=== PATIENT | male | born 1980 | race Caucasian/White ===

== ENCOUNTER 2020-11-06 09:30 | Outpatient (RCR) | payer OTHER, SELFPAY ==
[2020-11-03 14:19] VITALS: BMI 23.7
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
--- NOTE | 2020-11-06 12:17 | PC.NURSE ---
Per staff patient's partner left a voice mail stating that patient was not going to be in group as he is having SI and is awaiting a bed in the [place] [facility] of the [facility] and will be transferred there. Staff received another voicemail that Jose has been admitted to [facility] inpatient unit.
--- NOTE | 2020-11-06 14:41 | PC.NURSE ---
Pt called and left a message early this morning. He said he is in the hospital after his partner called because he (pt) was having SI. He said he is safe and they will be transferring him to the [place] part of the [facility] for an inpatient stay. He expressed interest in resuming PHP after inpatient. I called back and left him a message.
== END 2020-11-06 14:33 | disposition home or self-care (01) ==
LOC: HO.PHPA 09:30
PROVIDERS: Visit Provider Psychiatry & Neurology Psychiatry
DX: F33.2 Major depressive disorder, recurrent severe without psychotic features (principal); F43.10 Post-traumatic stress disorder, unspecified
CPT/HCPCS: 90791; 90853

== ENCOUNTER 2020-11-17 08:28 | Outpatient (RCR) | payer OTHER, SELFPAY | END 2021-01-08 14:12 | disposition home or self-care (01) | LOC: HO.PHPA 08:28 | PROVIDERS: PCP Family Medicine; Visit Provider Psychiatry & Neurology Psychiatry | DX: F32.9 Major depressive disorder, single episode, unspecified (principal) ==

== ENCOUNTER 2020-11-21 13:15 | Outpatient (RCR) | payer OTHER, SELFPAY | END 2020-11-21 15:05 | disposition home or self-care (01) | LOC: HO.PHPA 13:15 | PROVIDERS: Visit Provider Psychiatry & Neurology Psychiatry | DX: F32.9 Major depressive disorder, single episode, unspecified (principal); F43.10 Post-traumatic stress disorder, unspecified ==